=== PATIENT | male | born 1950 | race Caucasian/White ===

== ENCOUNTER → 2023-04-21 08:21 | Outpatient (REF) | payer MEDICARE, OTHER, SELFPAY ==
[2023-04-21 09:14] LABS: % Basophils 0.7 % (0-2); % Eosinophils 5.5 % (0-6); % Immature Granulocytes 0.2 % (0-0.5); % Lymphocytes 29.7 % (20.5-51.1); % Monocytes 9.6 % (1.7-9.3); % Neutrophils 54.3 % (42.2-75.2); Absolute Eosinophils 0.3 10^3/uL (0-0.7); Absolute Lymphocytes 1.4 10^3/uL (1.2-3.4); Absolute Monocytes 0.4 10^3/uL (0.1-0.6); Absolute Neutrophils 2.5 10^3/uL (1.4-6.5); Hematocrit 43.5 % (39.0-52.0); Hemoglobin 15.4 g/dL (13.0-18.0); Mean Corp Hgb Conc. 35.4 g/dL (33.0-37.0); Mean Corpuscular Hgb 33.1 pg (27.0-31.0); Mean Corpuscular Volume 93.5 fL (80.0-94.0); Mean Platelet Volume 9.5 fL (7.4-10.4); Nucleated Red Blood Cells % 0 % (-); Platelet Count 235 10^3/uL (130-400); Red Blood Cell Count 4.65 10^6/uL (4.70-6.10); Red Cell Dist. Width 12.3 % (11.5-14.5); White Blood Cell Count 4.6 10^3/uL (4.8-10.8)
[2023-04-21 11:01] LABS: HDL Cholesterol 69 mg/dl; LDL Cholesterol, Calculated 128 mg/dl; Total Cholesterol 217 mg/dl (50-199); Triglyceride 101 mg/dl (10-149); Very Low Density Lipoprotein 20 mg/dl (0-30)
== END ==
LOC: REG 08:21
PROVIDERS: ATTENDING PHYSICIAN Family Medicine
DX: R79.89 Other specified abnormal findings of blood chemistry (principal); Z80.7 Family history of other malignant neoplasms of lymphoid, hematopoietic and related tissues; E78.2 Mixed hyperlipidemia
CPT/HCPCS: 36415; 80061; 85025

== ENCOUNTER → 2023-07-21 06:20 | Day surgery (SDC) | payer MEDICARE, OTHER, SELFPAY | LOC: GI 06:20 | PROVIDERS: ATTENDING PHYSICIAN Internal Medicine Gastroenterology | DX: Z12.11 Encounter for screening for malignant neoplasm of colon (principal); K57.30 Diverticulosis of large intestine without perforation or abscess without bleeding; K62.89 Other specified diseases of anus and rectum; K64.8 Other hemorrhoids; Z86.010 Personal history of colon polyps | CPT/HCPCS: 45378 ==

== ENCOUNTER → 2024-02-29 09:39 | Outpatient (REF) | payer MEDICARE, OTHER, SELFPAY ==
[2024-02-29 11:20] LABS: % Basophils 0.5 % (0-2); % Eosinophils 3.7 % (0-6); % Immature Granulocytes 0.2 % (0-0.5); % Lymphocytes 20.8 % (20.5-51.1); % Monocytes 12.4 % (1.7-9.3); % Neutrophils 62.4 % (42.2-75.2); Absolute Eosinophils 0.2 10^3/uL (0-0.7); Absolute Lymphocytes 0.9 10^3/uL (1.2-3.4); Absolute Monocytes 0.5 10^3/uL (0.1-0.6); Absolute Neutrophils 2.7 10^3/uL (1.4-6.5); Hematocrit 47.1 % (39.0-52.0); Hemoglobin 16.1 g/dL (13.0-18.0); Mean Corp Hgb Conc. 34.2 g/dL (33.0-37.0); Mean Corpuscular Hgb 32.2 pg (27.0-31.0); Mean Corpuscular Volume 94.2 fL (80.0-94.0); Mean Platelet Volume 9.9 fL (7.4-10.4); Nucleated Red Blood Cells % 0 % (-); Platelet Count 211 10^3/uL (130-400); Red Cell Dist. Width 12.4 % (11.5-14.5); White Blood Cell Count 4.3 10^3/uL (4.8-10.8)
[2024-02-29 11:44] LABS: Glycohemoglobin (HgbA1c) 5.6 % (4.0-5.6)
[2024-02-29 12:25] LABS: PSA, Total - Screen 0.67 ng/ml (0.0-4.0)
[2024-02-29 12:35] LABS: TSH Reflex To Free T4 1.52 uIU/ml (0.47-4.68)
[2024-02-29 12:42] LABS: ALT (SGPT) 32 U/L (0-50); AST (SGOT) 31 U/L (17-59); Albumin 4.3 g/dl (3.5-5.0); Alkaline Phosphatase 94 U/L (38-126); Blood Urea Nitrogen 19 mg/dl (9-20); Calcium 8.7 mg/dl (8.4-10.2); Carbon Dioxide 27 mmol/L (22-30); Chloride 100 mmol/L (98-107); Glucose 102 mg/dl (70-99); HDL Cholesterol 57 mg/dl; LDL Cholesterol, Calculated 126 mg/dl; Potassium 4.5 mmol/L (3.5-5.1); Sodium 138 mmol/L (135-145); Total Bilirubin 0.5 mg/dl (0.2-1.3); Total Cholesterol 196 mg/dl (50-199); Total Protein 6.5 g/dl (6.3-8.2); Triglyceride 69 mg/dl (10-149); Very Low Density Lipoprotein 13 mg/dl (0-30); eGFR > 60.00
== END ==
LOC: REG 09:39
PROVIDERS: ATTENDING PHYSICIAN Family Medicine
DX: Z12.5 Encounter for screening for malignant neoplasm of prostate (principal); E78.2 Mixed hyperlipidemia; R73.03 Prediabetes; E03.9 Hypothyroidism, unspecified
CPT/HCPCS: 36415; 80053; 80061; 83036; 84443; 85025; G0103

== ENCOUNTER → 2024-12-20 09:12 | Outpatient (REF) | payer MEDICARE, OTHER, SELFPAY ==
[2024-12-20 10:44] LABS: Hematocrit 45.9 % (39.0-52.0); Hemoglobin 16.0 g/dL (13.0-18.0); Mean Corp Hgb Conc. 34.9 g/dL (33.0-37.0); Mean Corpuscular Volume 96.2 fL (80.0-94.0); Nucleated Red Blood Cells % 0 % (-); Platelet Count 217 10^3/uL (130-400); Red Cell Dist. Width 12.7 % (11.5-14.5)
[2024-12-20 12:19] LABS: C-Reactive Protein < 5.00 mg/L (0.0-10.00)
[2024-12-20 12:49] LABS: TSH 1.28 uIU/ml (0.47-4.68)
[2024-12-20 16:11] LABS: ALT (SGPT) 32 U/L (0-50); AST (SGOT) 27 U/L (17-59); Albumin 4.2 g/dl (3.5-5.0); Alkaline Phosphatase 82 U/L (38-126); Blood Urea Nitrogen 24 mg/dl (9-20); Calcium 9.3 mg/dl (8.4-10.2); Carbon Dioxide 30 mmol/L (22-30); Chloride 101 mmol/L (98-107); Glucose 99 mg/dl (70-99); Potassium 4.6 mmol/L (3.5-5.1); Sodium 135 mmol/L (135-145); Total Protein 6.7 g/dl (6.3-8.2); eGFR > 60.00
[2024-12-21 15:01] LABS: Hepatitis C Antibody Negative (Negative)
== END ==
LOC: RAD 09:12
PROVIDERS: ATTENDING PHYSICIAN Family Medicine
DX: R63.4 Abnormal weight loss (principal)
CPT/HCPCS: 36415; 71046; 80053; 84439; 84443; 85025; 86140; 86803; 87389